=== PATIENT | female | born 1990 | race Caucasian/White ===

== ENCOUNTER 2017-08-29 23:51 | Emergency (ER) | payer OTHER ==
[~2017-08-29] VITALS: Ht 160 cm; Wt 52.2 kg
--- NOTE | 2017-08-29 23:56 | ED AMS/SEIZURE/WEAK/DIZZY ---
History of Present Illness General Chief Complaint: ETOH/Drug Related Complaint Stated Complaint: BIBA FALL, +ETOH Source: patient Exam Limitations: intoxication Vital Signs & Intake/Output Vital Signs & Intake/Output Vital Signs Date Time Temp Pulse Resp B/P B/P Pulse O2 O2 Flow FiO2 Mean Ox Delivery Rate 08/30 0558 98.0 88 18 110/60 100 Room Air 08/30 0439 87 18 102/58 100 Room Air 08/30 0058 98 Room Air 08/29 2353 98.2 104 20 116/64 99 Room Air ED Intake and Output 08/30 0000 08/29 1200 Intake Total Output Total Balance Patient 115 lb Weight Weight Estimated Measurement Method Allergies Coded Allergies: No Known Allergies (08/30/17) Reconcile Medications Omeprazole Magnesium (Prilosec Otc) 20 MG TABLET.DR 1 TAB PO DAILY stomach burning Ondansetron (Zofran Odt) 4 MG TAB.RAPDIS 1 TAB SL TID PRN nausea Triage Nurses Notes Reviewed? yes Onset: Gradual Duration: hour(s): Timing: recent history Injury Environment: home Severity: moderate Modifying Factors: Improves With: rest. Associated Symptoms: nausea HPI: 27 yo woman in prior good health, h/o bipolar, presents with nausea and vomiting. Per her friend, "She was drinking a the bar since this afternoon... She got really drunk... She started vomiting... and now she's just so drunk she can't keep anything down." Per the medics, there is no trauma. She denies other drugs, SI/HI. She is otherwise well. Past History Travel History Traveled to [place] past 21 day No Medical History Any Pertinent Medical History? see below for history Psychiatric: bipolar disease Surgical History Surgical History: non-contributory Family History Hx Contributory? No Review of Systems Review of Systems Constitutional: Reports: no symptoms. EENTM: Reports: no symptoms. Respiratory: Reports: no symptoms. Cardiovascular: Reports: no symptoms. GI: Reports: no symptoms. Genitourinary: Reports: no symptoms. Musculoskeletal: Reports: no symptoms. Skin: Reports: no symptoms. Neurological/Psychological: Reports: no symptoms. Hematologic/Endocrine: Reports: no symptoms. Immunologic/Allergic: Reports: no symptoms. All Other Systems: Reviewed and Negative Physical Exam Physical Exam General Appearance: well developed/nourished, mild distress Head: atraumatic, normal appearance Eyes: Bilateral: normal appearance. Ears, Nose, Throat: normal pharynx, normal ENT inspection Neck: normal inspection, supple, full range of motion Respiratory: normal breath sounds, chest non-tender, no respiratory distress, quiet respiration, lungs clear Cardiovascular: regular rate/rhythm Gastrointestinal: normal bowel sounds, soft, non-tender, no organomegaly Extremities: normal range of motion Neurologic/Psych: no motor/sensory deficits, lethargic Skin: intact, normal color, warm/dry Core Measures ACS in differential dx? No CVA/TIA Diagnosis No Sepsis Present: No Sepsis Focused Exam Completed? No Progress Differential Diagnosis: etoh intoxication, dehydration, viral syndrome vs other. Plan of Care: Orders Procedure Date/time Status URINE DRUG SCREEN FOR ER ONLY 08/30 2355 Complete HUMAN BETA HCG SCREEN 08/30 2355 Complete ETHANOL 08/30 2355 Complete COMPREHENSIVE METABOLIC PANEL 08/30 2355 Complete CBC WITHOUT DIFFERENTIAL 08/30 2355 Complete Laboratory Tests 08/30/17 0238: Urine Opiates Screen < 100, Methadone Screen < 40, Barbiturate Screen < 60, Ur Phencyclidine Scrn < 6.00, Amphetamines Screen < 100, U Benzodiazepines Scrn < 85, Urine Cocaine Screen < 50, Urine Cannabis Screen 79.50 H 08/30/17 0035: Anion Gap 16, Estimated GFR > 60, BUN/Creatinine Ratio 10.0, Glucose 76, Calcium 7.5 L, Total Bilirubin 0.3, AST 23, ALT 31, Alkaline Phosphatase 46, Total Protein 6.9, Albumin 3.9, Globulin 3.0, Albumin/Globulin Ratio 1.3, Total Beta HCG NEGATIVE, CBC w Diff NO MAN DIFF REQ, RBC 4.09 L, MCV 92.1, MCH 32.0 H, MCHC 34.8, RDW 13.9, MPV 8.1, Gran % 60.6, Lymphocytes % 28.8, Monocytes % 10.2 H, Eosinophils % 0.1, Basophils % 0.3, Absolute Granulocytes 4.7, Absolute Lymphocytes 2.2, Absolute Monocytes 0.8 H, Absolute Eosinophils 0, Absolute Basophils 0, Serum Alcohol 232.0 Initial ED EKG: none Departure Departure Disposition: HOME OR SELF CARE Condition: Stable Clinical Impression Primary Impression: Alcohol intoxication Secondary Impressions: Nausea and vomiting Departure Forms: Customer Survey General Discharge Information Prescriptions: Current Visit Scripts Omeprazole Magnesium (Prilosec Otc) 1 TAB PO DAILY #10 TAB Ondansetron (Zofran Odt) 1 TAB SL TID PRN nausea #10 TAB Comments 08/30/17, 5:41am... pt easily aroused, awake and lucid... safe for discharge in company of friend.
[2017-08-30] MEDS ORDERED: ZOFRAN ODT4 M1 SL (00:04)
[2017-08-30] MEDS ORDERED: PRILOSEC OTC20 M1 PO (00:04)
[2017-08-30 00:50] LABS: ABSOLUTE BASOPHIL COUNT 0 /CUMM (0.0-0.2); ABSOLUTE EOSINOPHIL COUNT 0 /CUMM (0.0-0.7); ABSOLUTE GRANULOCYTE CT 4.7 /CUMM (1.4-6.5); ABSOLUTE LYMPH COUNT 2.2 /CUMM (1.2-3.4); ABSOLUTE MONOCYTE COUNT 0.8 /CUMM (0.10-0.60); BASOPHIL % 0.3 % (0.0-2.0); EOSINOPHIL % 0.1 % (0-5); GRANULOCYTE % 60.6 % (42.2-75.2); HEMATOCRIT 37.7 % (37-47); MEAN CORPUSCULAR HGB CONC 34.8 G/DL (33.0-37.0); MEAN CORPUSCULAR VOLUME 92.1 FL (81.0-99.0); MEAN PLATELET VOLUME 8.1 FL (7.4-10.4); PLATELET COUNT 308 /CUMM (130-400); RBC DISTRIBUTION WIDTH 13.9 % (11.5-14.5); RED BLOOD CELL CT 4.09 /CUMM (4.20-5.40); WHITE BLOOD CELL COUNT 7.7 /CUMM (4.8-10.8)
[2017-08-30 05:58] VITALS: BP 110/60
== END 2017-08-30 06:00 ==
LOC: ERH 23:51
PROVIDERS: Pediatrics
DX: F10.129 Alcohol abuse with intoxication, unspecified (principal); R11.2 Nausea with vomiting, unspecified
CPT/HCPCS: 80307; 96361; 96374; 96375; G0480; J2405